=== PATIENT | male | born 1970 | race African-American/Black ===

== ENCOUNTER 2021-06-08 14:49 | Emergency (ER) | payer MEDICAID ==
[~2021-06-08] VITALS: Ht 180.3 cm; Wt 157.4 kg
[2021-06-08 16:05] VITALS: BP 158/96
[2021-06-08] MEDS ORDERED: TETRACAINE HCL 0.5% OPTH(EYE) SOLN 4ML LEFTEYE ONE (16:45)
[2021-06-08] MEDS ORDERED: FLUORESCEIN SOD OPTH TEST STRIP LEFTEYE ONE (16:45)
== END 2021-06-08 19:13 | disposition home or self-care (01) ==
LOC: ER 14:56
DX: T15.92XA Foreign body on external eye, part unspecified, left eye, initial encounter (principal); E11.9 Type 2 diabetes mellitus without complications; W25.XXXA Contact with sharp glass, initial encounter; Y93.89 Activity, other specified; Y92.89 Other specified places as the place of occurrence of the external cause; Y99.8 Other external cause status